=== PATIENT | male | born 1960 | race African-American/Black ===

== ENCOUNTER 2021-12-21 15:53 | Inpatient (IN) | payer OTHER ==
[~2021-12-21] VITALS: Ht 193 cm; Wt 98.0 kg
[2021-12-21] MEDS ORDERED: ASPirin 81 mg TAB PO ONE (16:30)
[2021-12-21] MEDS ORDERED: SODIUM CHLORIDE 0.9% 1,000 ML IV ONE (16:30)
[2021-12-21] MEDS ORDERED: METOPROLOL TARTRATE 1MG/1ML-5ML VIAL IV ONE ×2 (17:00)
[2021-12-21 17:04] LABS: Basophils # (auto) 0.1 10 ^3/uL (0-0.2); Basophils % (auto) 1.1 % (0.0-2.0); Eosinophils # (auto) 0.1 10 ^3/uL (0-0.8); Eosinophils % (auto) 2.1 % (0.0-7.0); Hematocrit 39.4 % (41.0-53.0); Hemoglobin 13.4 g/dL (13.5-17.5); Lymphocytes % (auto) 42.5 % (10.0-50.0); Mean Corpuscular Hemoglobin 29.8 pg (28.0-32.0); Mean Corpuscular Hgb Conc. 33.9 g/dL (32.0-36.0); Monocytes # (auto) 0.3 10 ^3/uL (0-1.3); Monocytes % (auto) 5.3 % (0.0-12.0); Neutrophils # (auto) 2.3 10 ^3/uL (1.6-8.6); Nucleated Red Blood Cells % 0.1 %; Red Blood Cells 4.48 10^6/uL (4.5-5.90); Red Cell Distribution Width 14.3 % (11.8-14.3); White Blood Cell 4.8 10^3/uL (4.4-10.8)
[2021-12-21 17:24] LABS: Albumin 3.6 g/dL (3.4-5.0); Calcium 8.2 mg/dL (8.5-10.1); Magnesium 2.3 mg/dL (1.6-2.6); Potassium 4.1 mmol/L (3.5-5.1)
[2021-12-21 17:29] LABS: BUN/Creatinine Ratio 15.5; Bilirubin, Total 2.1 mg/dL (0.2-1.0); Total Protein 7.4 g/dL (6.4-8.2)
[2021-12-21 21:26] LABS: INR 1.23 (0.9-1.15); Partial Thromboplastin Time 30.2 sec (23.6-33.0)
[2021-12-21 23:57] LABS: Urine Bacteria NONE SEEN /hpf (None Seen); Urine Blood Negative /uL (Negative); Urine Mucus FEW (None Seen); Urine WBC <1 /hpf (0 - 3)
[2021-12-22] VITALS (7 sets, daily range): BP systolic 103–144; BP diastolic 55–105
[2021-12-22] MEDS ORDERED: D5W/SOD CHL 0.45% 1,000 ML IV ONE
[2021-12-22] MEDS ORDERED: LISI40TA11 PO (00:41)
[2021-12-22] MEDS ORDERED: AML5T PO (00:41)
[2021-12-22] MEDS ORDERED: HYDROcodone-ACET 10/325MG TAB PO ONE (02:00)
[2021-12-22] MEDS ORDERED: ONDANSETRON HCL 4 MG/2 ML VIAL IV ONE (02:00)
[2021-12-22] MEDS ORDERED: AZITHROMYCIN 500MG/ 250ML 250 ML IV SCH (03:00)
[2021-12-22 07:17] LABS: Calcium 8.5 mg/dL (8.5-10.1); Potassium 4.2 mmol/L (3.5-5.1)
[2021-12-22 07:21] LABS: BUN/Creatinine Ratio 16.9
[2021-12-22] MEDS ORDERED: ASPirin 81 mg TAB PO ONE (10:00)
[2021-12-22] MEDS ORDERED: ENOXAPARIN SOD 40 MG/0.4 ML SYRINGE SC ONE (10:00)
[2021-12-22] MEDS ORDERED: NITROGLYCERIN 0.4 MG SL TAB SL ONE (10:00)
[2021-12-22] MEDS ORDERED: METOPROLOL TARTRATE 25 MG TAB PO ONE (10:00)
[2021-12-22] MEDS: FUROSEMIDE 20 MG/2 ML VIAL IV SCH (10:26)
[2021-12-22] MEDS: AZITHROMYCIN 500MG/ 250ML 250 ML IV SCH (10:27)
[2021-12-22] MEDS: ALBUTEROL SULF 2.5 MG/0.5ML(0.5%) NEB SOLN NEB SCH (18:05)
[2021-12-23 05:00] VITALS: BP 119/96
[2021-12-23] MEDS: ALBUTEROL SULF 2.5 MG/0.5ML(0.5%) NEB SOLN NEB SCH ×3 (06:31→22:18)
[2021-12-23 07:59] LABS: BUN/Creatinine Ratio 19.9; Calcium 8.6 mg/dL (8.5-10.1); Potassium 3.7 mmol/L (3.5-5.1)
[2021-12-23] MEDS: FUROSEMIDE 20 MG/2 ML VIAL IV SCH (08:50)
[2021-12-23] MEDS: AZITHROMYCIN 500MG/ 250ML 250 ML IV SCH (08:50)
[2021-12-23 08:55] VITALS: BP 138/83
[2021-12-23 12:52] VITALS: BP 108/91
[2021-12-23] MEDS: ONDANSETRON HCL 4 MG/2 ML VIAL IV PRN (14:13)
[2021-12-23] MEDS: METOPROLOL TARTRATE 25 MG TAB PO SCH (14:14)
[2021-12-23] MEDS: ASPirin 81 mg TAB PO SCH (14:14)
[2021-12-23] MEDS: ENOXAPARIN SOD 40 MG/0.4 ML SYRINGE SC SCH (14:14)
[2021-12-23 17:01] VITALS: BP 131/96
[2021-12-23 22:19] VITALS: BP 131/94
[2021-12-24] VITALS (9 sets, daily range): BP systolic 87–133; BP diastolic 61–91
[2021-12-24] MEDS ORDERED: SODIUM CHLORIDE 0.9 % NEB SOLN 3ML NEB ONE ×2 (06:07→14:11)
[2021-12-24 06:08] LABS: BUN/Creatinine Ratio 19.5; Calcium 8.4 mg/dL (8.5-10.1); Potassium 3.8 mmol/L (3.5-5.1)
[2021-12-24] MEDS: ALBUTEROL SULF 2.5 MG/0.5ML(0.5%) NEB SOLN NEB SCH ×3 (07:57→21:46)
[2021-12-24] MEDS: ONDANSETRON HCL 4 MG/2 ML VIAL IV PRN ×4 (08:36→20:26)
[2021-12-24] MEDS: ASPirin 81 mg TAB PO SCH (08:36)
[2021-12-24] MEDS: METOPROLOL TARTRATE 25 MG TAB PO SCH (08:36)
[2021-12-24] MEDS: AZITHROMYCIN 500MG/ 250ML 250 ML IV SCH (08:37)
[2021-12-24] MEDS: FUROSEMIDE 20 MG/2 ML VIAL IV SCH (08:37)
[2021-12-24] MEDS: ENOXAPARIN SOD 40 MG/0.4 ML SYRINGE SC SCH (08:37)
[2021-12-25 05:02] VITALS: BP 116/89
[2021-12-25 06:18] LABS: BUN/Creatinine Ratio 20.1; Calcium 8.1 mg/dL (8.5-10.1); Potassium 3.7 mmol/L (3.5-5.1)
[2021-12-25 09:00] VITALS: BP 119/98
[2021-12-25 09:06] VITALS: BP 128/87
[2021-12-25] MEDS: FUROSEMIDE 20 MG/2 ML VIAL IV SCH (10:05)
[2021-12-25] MEDS: ENOXAPARIN SOD 40 MG/0.4 ML SYRINGE SC SCH (10:06)
[2021-12-25] MEDS: METOPROLOL TARTRATE 25 MG TAB PO SCH (10:06)
[2021-12-25] MEDS: AZITHROMYCIN 500MG/ 250ML 250 ML IV SCH (10:06)
[2021-12-25] MEDS: ASPirin 81 mg TAB PO SCH (10:06)
[2021-12-25 13:00] VITALS: BP 92/66
[2021-12-25] MEDS: ONDANSETRON HCL 4 MG/2 ML VIAL IV PRN (13:31)
[2021-12-25 17:00] VITALS: BP 112/81
[2021-12-25] MEDS: ALBUTEROL SULF 2.5 MG/0.5ML(0.5%) NEB SOLN NEB SCH (18:50)
[2021-12-25 22:00] VITALS: BP 123/87
[2021-12-25] MEDS: CIPROFLOXACIN HCL 500 MG TAB PO SCH (22:45)
[2021-12-26 05:00] VITALS: BP 125/91
[2021-12-26] MEDS: ALBUTEROL SULF 2.5 MG/0.5ML(0.5%) NEB SOLN NEB SCH ×3 (06:13→19:40)
[2021-12-26 09:00] VITALS: BP 150/76
[2021-12-26] MEDS: METOPROLOL TARTRATE 25 MG TAB PO SCH ×2 (10:00→11:25)
[2021-12-26] MEDS: CIPROFLOXACIN HCL 500 MG TAB PO SCH (10:00)
[2021-12-26] MEDS: ASPirin 81 mg TAB PO SCH (10:00)
[2021-12-26] MEDS: FUROSEMIDE 20 MG/2 ML VIAL IV SCH (10:00)
[2021-12-26] MEDS: ENOXAPARIN SOD 40 MG/0.4 ML SYRINGE SC SCH (10:00)
[2021-12-26 13:00] VITALS: BP 89/48
[2021-12-26 17:03] VITALS: BP 122/58
[2021-12-26] MEDS: FUROSEMIDE 20 MG TAB PO SCH (18:00)
[2021-12-26 22:00] VITALS: BP 112/80
[2021-12-26] MEDS: POTASSIUM CHL 10 Meq TABLET PO SCH (22:14)
[2021-12-27 05:00] VITALS: BP 138/98
[2021-12-27] MEDS: FUROSEMIDE 20 MG TAB PO SCH ×2 (05:33→17:32)
[2021-12-27] MEDS: ALBUTEROL SULF 2.5 MG/0.5ML(0.5%) NEB SOLN NEB SCH ×2 (06:00→14:00)
[2021-12-27 06:14] LABS: Calcium 8.7 mg/dL (8.5-10.1); Potassium 4.1 mmol/L (3.5-5.1)
[2021-12-27 06:19] LABS: BUN/Creatinine Ratio 19.9
[2021-12-27 08:00] VITALS: BP 130/93
[2021-12-27 08:32] VITALS: BP 130/93
[2021-12-27] MEDS: ENOXAPARIN SOD 40 MG/0.4 ML SYRINGE SC SCH (10:00)
[2021-12-27] MEDS ORDERED: CIPROFLOXACIN HCL 500 MG TAB PO SCH (10:00)
[2021-12-27] MEDS: POTASSIUM CHL 10 Meq TABLET PO SCH (10:00)
[2021-12-27] MEDS: ASPirin 81 mg TAB PO SCH (10:00)
[2021-12-27 12:00] VITALS: BP 125/91
[2021-12-27 17:00] VITALS: BP 119/69
[2021-12-27] MEDS ORDERED: FUR20T PO (17:40)
[2021-12-27] MEDS ORDERED: POTA-167 PO (17:40)
[2021-12-27] MEDS ORDERED: MET25T PO (17:40)
== END 2021-12-27 18:54 | disposition left against medical advice (07) | DRG 291 ==
LOC: ER 15:53 → EEVIPCON 15:53 → TELE 21:47 → TELE-WESTW 23:09
PROVIDERS: ADMIT Internal Medicine; ATTEND Internal Medicine
DX: I13.0 Hypertensive heart and chronic kidney disease with heart failure and stage 1 through stage 4 chronic kidney disease, or unspecified chronic kidney disease (principal); I50.23 Acute on chronic systolic (congestive) heart failure; N17.9 Acute kidney failure, unspecified; N18.9 Chronic kidney disease, unspecified; F12.90 Cannabis use, unspecified, uncomplicated; I25.10 Atherosclerotic heart disease of native coronary artery without angina pectoris; Z20.822 Contact with and (suspected) exposure to COVID-19; Z82.49 Family history of ischemic heart disease and other diseases of the circulatory system; Z83.3 Family history of diabetes mellitus
CPT/HCPCS: 36415; 71045; 71046; 71250; 78582; 80048; 80053; 81001; 83735; 83880; 84443; 84484; 85025; 85379; 85610; 85730; 87045; 87427; 93005; 93306; 94640; 96361; 96374; G0378; J2405

== ENCOUNTER 2022-02-10 19:16 | Emergency (ER) | payer OTHER ==
[~2022-02-10] VITALS: Ht 170.2 cm; Wt 68.0 kg
[~2022-02-10 19:16] MED LIST: AML5T PO; FUR20T PO; LISI40TA11 PO; MET25T PO; POTA-167 PO
[2022-02-10] MEDS ORDERED: predniSONE 20 MG TAB PO ONE (19:45)
[2022-02-10] MEDS ORDERED: NITROGLYCERIN 2% OINT 1GM PKG TD ONE (19:45)
[2022-02-10] MEDS ORDERED: ASPirin 325 MG TAB PO ONE (19:45)
[2022-02-10] MEDS ORDERED: FUROSEMIDE 40 MG/4 ML VIAL IV ONE (19:45)
[2022-02-10 20:41] LABS: Albumin 3.6 g/dL (3.4-5.0); BUN/Creatinine Ratio 23.2; Calcium 8.5 mg/dL (8.5-10.1); Potassium 3.7 mmol/L (3.5-5.1)
[2022-02-10 20:44] LABS: Bilirubin, Total 1.5 mg/dL (0.2-1.0); Total Protein 7.3 g/dL (6.4-8.2)
[2022-02-10 20:46] LABS: Basophils # (auto) 0 10 ^3/uL (0-0.2); Basophils % (auto) 0.5 % (0.0-2.0); Eosinophils # (auto) 0.1 10 ^3/uL (0-0.8); Eosinophils % (auto) 1.3 % (0.0-7.0); Hematocrit 39.6 % (41.0-53.0); Hemoglobin 13.2 g/dL (13.5-17.5); Lymphocytes # (auto) 1.7 10 ^3/uL (0.4-5.4); Lymphocytes % (auto) 38.1 % (10.0-50.0); Mean Corpuscular Hemoglobin 30.2 pg (28.0-32.0); Mean Corpuscular Hgb Conc. 33.3 g/dL (32.0-36.0); Mean Corpuscular Volume 90.8 fL (80.0-100.0); Monocytes # (auto) 0.2 10 ^3/uL (0-1.3); Monocytes % (auto) 4.7 % (0.0-12.0); Neutrophils # (auto) 2.5 10 ^3/uL (1.6-8.6); Neutrophils % (auto) 55.4 % (37.0-80.0); Nucleated Red Blood Cells % 0.1 %; Red Blood Cells 4.36 10^6/uL (4.5-5.90); Red Cell Distribution Width 15.4 % (11.8-14.3); White Blood Cell 4.5 10^3/uL (4.4-10.8)
[2022-02-11 03:30] VITALS: BP 101/74
== END 2022-02-11 07:11 | disposition home or self-care (01) ==
LOC: EDBD 19:16 → EEVIPCON 19:19 → ER 19:19
DX: J81.0 Acute pulmonary edema (principal); I11.0 Hypertensive heart disease with heart failure; I50.9 Heart failure, unspecified; J45.909 Unspecified asthma, uncomplicated
CPT/HCPCS: 36415; 71045; 80053; 83880; 84484; 85025; 93005; 96374; 99285; J1940; J7512